=== PATIENT | female | born 1970 | race Caucasian/White ===

== ENCOUNTER → 2018-05-13 | Outpatient (CLI) | payer OTHER | LOC: M.RAD 13:50 | DX: M25.421 Effusion, right elbow (principal); M25.531 Pain in right wrist; M25.511 Pain in right shoulder; W19.XXXA Unspecified fall, initial encounter ==

== ENCOUNTER → 2018-05-13 | Outpatient (CLI) | payer OTHER | LOC: M.RAD 05-06 13:56 | DX: N60.02 Solitary cyst of left breast (principal) ==

== ENCOUNTER → 2018-05-30 | Outpatient (CLI) | payer OTHER | LOC: M.RAD 09:29 | DX: M25.531 Pain in right wrist (principal); M25.521 Pain in right elbow; M79.601 Pain in right arm; W19.XXXD Unspecified fall, subsequent encounter ==

== ENCOUNTER → 2019-10-08 | Outpatient (CLI) | payer OTHER | LOC: M.RAD 13:00 | DX: Z12.31 Encounter for screening mammogram for malignant neoplasm of breast (principal) ==

== ENCOUNTER → 2020-02-24 | Outpatient (CLI) | payer OTHER | LOC: M.CT 15:30 | DX: R19.5 Other fecal abnormalities (principal); M41.86 Other forms of scoliosis, lumbar region ==